=== PATIENT | female | born 1955 | race Caucasian/White ===

== ENCOUNTER 2018-10-30 06:39 | Day surgery (SDC) | payer OTHER ==
--- NOTE | 2018-10-29 13:38 | RAD REPORT ---
EXAM DESCRIPTION: Maribel Kruger And Donal (2 Views)10/29/2018 1:17 pm CLINICAL HISTORY: Preop for coronary artery catheterization COMPARISON: 2011 FINDINGS: Lungs are hyperaerated. The lungs appear clear of acute infiltrate. The heart is upper limits normal size IMPRESSION: No acute abnormalities displayed
[2018-10-29 14:19] LABS: Basophils % 0.6 % (0-1.3); Eosinophils % 2.2 % (0-4.4); Hematocrit 47.9 % (36.0-45.0); Lymphocytes % 30.1 % (15.3-44.8); MPV 7.6 fL (7.6-11.3); Monocytes % 7.2 % (3.3-12.3); RBC Red Blood Cell Count 4.78 M/uL (3.86-4.86)
[2018-10-29 14:22] LABS: Protime INR 0.97
[2018-10-30] MEDS ORDERED: NA CHLORIDE 0.9% 500 ML ONE (07:00)
[2018-10-30] MEDS ORDERED: LIDOCAINE 1% MPF 30 ML VIAL ONE (07:00)
[2018-10-30] MEDS ORDERED: HEPA 1000U/500MLS 1,000 UNIT/500 ML BAG IV ONE (07:00)
[2018-10-30] MEDS ORDERED: NA CHLORIDE 0.9% 0 ML ONE (07:39)
[2018-10-30] MEDS ORDERED: ATROPINE SULF 1 MG/10 ML SYR IV ONE (07:39)
[2018-10-30] MEDS ORDERED: MIDAZOLAM HCL 2 MG/2 ML INJ ONE ×2 (07:39→07:50)
[2018-10-30] MEDS ORDERED: FENTANYL CITR 100 MCG/2 ML ONE (07:39)
[2018-10-30 10:42] VITALS: BP 144/53; TEMP 97; O2SAT 94
--- NOTE | 2018-10-30 14:54 | OP ---
Surgeon: Ravin Velázquez MD Mechanical Apprentice: Sallie Burdick. Ms. Dunn is a 63-year-old admitted today as an outpatient to the [facility] for heart catheterizatio n and selective coronary artery. Indication: CAD status post LAD stent with atypical chest pain and abnormal stress test. Procedure In Detail: She was prepped and draped in the routine sterile fashion, given 4 mg of Versed for IV sedation. A 6-Turkish sheath introduced in the right common femoral artery successfully. Ang iography there was normal. Angio-Seal was used to close the case. George catheter were used to do the angiography in the left main and the right main. She was found to have a normal RCA, normal circ umflex. A perfectly patent LAD stent approximately without any restenosis. A 6-Turkish sheath and ca theters were used. Complications: No complication. Estimated Blood Loss: 5 cc. Anesthesia: Total conscious sedation was 30 minutes. Postoperative Diagnosis: Coronary artery disease, patent LAD stent. Plans for medical therapy. RAUL/DEEPA Voice ID: [id number] Report ID: [id number]
== END 2018-10-30 10:10 | disposition home health service (06) ==
LOC: CCL 06:39
DX: I25.10 Atherosclerotic heart disease of native coronary artery without angina pectoris (principal); I10 Essential (primary) hypertension; E78.6 Lipoprotein deficiency; E03.9 Hypothyroidism, unspecified; E78.5 Hyperlipidemia, unspecified; G62.9 Polyneuropathy, unspecified; Z79.899 Other long term (current) drug therapy; Z95.5 Presence of coronary angioplasty implant and graft
CPT/HCPCS: 36415; 71046; 80048; 85025; 85610; 85730; 93454; C1760; C1893; J0583; J2250; J3010